=== PATIENT | female | born 1945 | race Caucasian/White ===

== ENCOUNTER 2022-10-28 13:15 | Outpatient (CLI) | payer MEDICARE, MEDICAID | END 2022-10-28 13:16 | disposition home or self-care (01) | LOC: CSHULT 13:15 | PROVIDERS: ATTEND Nurse Practitioner Family | DX: I25.10 Atherosclerotic heart disease of native coronary artery without angina pectoris (principal); I51.9 Heart disease, unspecified | CPT/HCPCS: 93306 ==

== ENCOUNTER 2023-05-10 16:21 | Outpatient (CLI) | payer MEDICARE, MEDICAID | END 2023-05-10 16:22 | disposition home or self-care (01) | LOC: CSHRAD 16:21 | PROVIDERS: ATTEND Otolaryngology Otolaryngic Allergy | DX: R13.10 Dysphagia, unspecified (principal); J38.00 Paralysis of vocal cords and larynx, unspecified | CPT/HCPCS: 70360; 71046 ==

== ENCOUNTER 2023-05-19 07:58 | Outpatient (CLI) | payer MEDICARE, MEDICAID ==
[2023-05-19] MEDS ORDERED: Iopamidol 300 61% 100 ML VIAL FS ONE (15:20)
== END 2023-05-19 07:59 | disposition home or self-care (01) ==
LOC: CSHCT 07:58
PROVIDERS: ATTEND Otolaryngology Otolaryngic Allergy
DX: J38.00 Paralysis of vocal cords and larynx, unspecified (principal); I70.90 Unspecified atherosclerosis; I87.9 Disorder of vein, unspecified
CPT/HCPCS: 70491; 71260; 82565; Q9967